=== PATIENT | male | born 1950 | race Caucasian/White ===

== ENCOUNTER 2019-01-04 20:49 | Emergency (ER) | payer BC, MEDICARE ==
--- NOTE | 2019-01-04 20:59 | NUR ---
PATIENT SPOKE WITH A FRIEND WHO IS AN ER DR AT [facility] AND SAID HE IS GOING THERE.
== END 2019-01-04 21:01 | disposition left against medical advice (07) ==
LOC: ER 20:50
DX: Z53.21 Procedure and treatment not carried out due to patient leaving prior to being seen by health care provider (principal)